=== PATIENT | female | born 1965 | race Caucasian/White ===

== ENCOUNTER 2024-11-30 06:28 | Emergency (ER) | payer OTHER ==
[~2024-11-30] VITALS: Ht 149.9 cm; Wt 104.3 kg
[2024-11-30] MEDS ORDERED: OxyCODONE 5 mg/Acetamin 325 mg TABLET PO ONE (07:05)
[2024-11-30] MEDS ORDERED: PredniSONE 20 MG Tab PO ONE (07:05)
[2024-11-30] MEDS ORDERED: Ketorolac Tromethamine 15mg Vial IV ONE (07:05)
[2024-11-30] MEDS ORDERED: Naproxen 250 MG TAB PO ONE (07:20)
[2024-11-30] MEDS ORDERED: Percocet 5-3251 EACH PO (08:51)
[2024-11-30] MEDS ORDERED: PRED20 PO (08:51)
[2024-11-30] MEDS ORDERED: NAPR500 PO (08:51)
== END 2024-11-30 09:04 | disposition home or self-care (01) ==
LOC: ER 06:28
DX: M17.0 Bilateral primary osteoarthritis of knee (principal); M19.012 Primary osteoarthritis, left shoulder; M19.011 Primary osteoarthritis, right shoulder
CPT/HCPCS: 99283; A9270; J7512